=== PATIENT | female | born 1940 | race Caucasian/White ===

== ENCOUNTER 2019-03-23 15:35 | Inpatient (IN) | payer MEDICAID ==
[~2019-03-23] VITALS: Ht 149.9 cm; Wt 68.0 kg
[~2019-03-23 15:35] MED LIST: ASPI-1393 PO; BENA40TA9 PO; CARV12.545 PO; FERR-63 PO; FURO20TA4 PO; LEVO25TA7 PO; SIMV40TA5 PO
[2019-03-23] MEDS ORDERED: SODIUM CHLORIDE 0.9% 1,000 ML IV ONE ×4 (16:08→19:45)
[2019-03-23 16:28] LABS: BASOPHILS % 0.1 % (0.0-2.0); EOSINOPHILS % 0.8 % (0.0-5.0); LYMPHOCYTES % 10.9 % (20.0-50.0); MEAN CORPUSCULAR VOLUME 91.7 fL (81.0-99.0); MEAN PLATELET VOLUME 7.2 fl (7.4-10.4); MONOCYTES % 7.4 % (2.0-8.0); NEUTROPHILS % 80.8 % (40.0-76.0); PLATELET 64 x1000/uL (130-400); RED BLOOD CELL COUNT 1.16 mill/uL (4.2-5.4); RED CELL DISTRIBUTION WIDTH 18.2 % (11.6-14.6)
[2019-03-23 16:33] LABS: CHLORIDE 108 mEq/L (98-107); HEMATOCRIT. 10.6 % (36.0-48.0); HEMOGLOBIN. 3.6 g/dL (12.0-16.0)
[2019-03-23 16:49] LABS: INR 2.1; PARTIAL THROMBOPLASTIN TIME 41.6 sec (23.4-31.0); PROTHROMBIN TIME 20.4 sec (9.6-11.0)
[2019-03-23] MEDS ORDERED: PHYTONADIONE 10MG/ML AMP SUBCUT ONE (18:00)
[2019-03-24] VITALS (14 sets, daily range): BP systolic 102–150; BP diastolic 48–68
[2019-03-24] MEDS ORDERED: DEXTROSE 50% WATER 50ML SYRINGE IV PRN (04:30)
[2019-03-24] MEDS: BLOOD SUGAR DIAGNOSTIC STRIP TEST SCH ×4 (07:30→21:00)
[2019-03-24] MEDS: INSULIN LISPRO 100 UNITS/ML SUBCUT SCH ×4 (08:00→21:00)
[2019-03-24] MEDS: PANTOPRAZOLE SODIUM 40 MG/VIAL IV SCH ×2 (08:51→17:00)
[2019-03-24] MEDS: LEVOTHYROXINE SODIUM 25MCG TABLET PO SCH (08:51)
[2019-03-24] MEDS: MORPHINE SULFATE 2 MG/ML CPJ (NOT FOR IM USE) IV PRN ×2 (08:52→22:43)
[2019-03-24 11:06] LABS: BASOPHILS % 0.2 % (0.0-2.0); EOSINOPHILS % 0.4 % (0.0-5.0); LYMPHOCYTES % 12.2 % (20.0-50.0); MEAN CORPUSCULAR HEMOGLOBIN 29.4 pg (28.0-32.0); MEAN CORPUSCULAR VOLUME 86.5 fL (81.0-99.0); MEAN PLATELET VOLUME 8.3 fl (7.4-10.4); MONOCYTES % 6.1 % (2.0-8.0); NEUTROPHILS % 81.1 % (40.0-76.0); PLATELET 91 x1000/uL (130-400); RED BLOOD CELL COUNT 2.38 mill/uL (4.2-5.4); RED CELL DISTRIBUTION WIDTH 16.1 % (11.6-14.6)
[2019-03-24 11:11] LABS: HEMATOCRIT. 20.6 % (36.0-48.0); INR 1.4; PROTHROMBIN TIME 14.1 sec (9.6-11.0)
[2019-03-24 11:25] LABS: CHLORIDE 112 mEq/L (98-107)
[2019-03-24] MEDS ORDERED: SORBITOL 70% SOLN 30ML PO NR (15:00)
[2019-03-24] MEDS ORDERED: DIATR MEGLU/DIATRIZOATE SOLN 30ML PO NR (17:30)
[2019-03-24 17:41] LABS: TOTAL IRON BINDING CAPACITY 236 ug/dL (250-450)
[2019-03-24 18:40] LABS: HEMATOCRIT 26.3 % (36.0-48.0)
[2019-03-24 19:15] LABS: VITAMIN B12 SERUM 835 pg/mL (211-911)
[2019-03-24 22:22] LABS: CLARITY URINE CLOUDY (CLEAR); COLOR URINE YELLOW (YELLOW); KETONES URINE NEGATIVE (NEGATIVE); LEUKOCYTE ESTERASE URINE 2+ (NEGATIVE); NITRITE URINE NEGATIVE (NEGATIVE); OCCULT BLOOD URINE 1+ (NEGATIVE); PROTEIN URINE TRACE (NEGATIVE); UROBILINOGEN URINE 0.2 E.U./dL (0.2-1.0)
[2019-03-24] MEDS ORDERED: IOHEXOL-300 100 ML BOTTLE ONE (22:38)
[2019-03-25] VITALS (12 sets, daily range): BP systolic 85–145; BP diastolic 45–68
[2019-03-25 02:28] LABS: HEMOGLOBIN 8.8 g/dL (12.0-16.0)
[2019-03-25] MEDS: MORPHINE SULFATE 2 MG/ML CPJ (NOT FOR IM USE) IV PRN ×3 (02:58→16:07)
[2019-03-25] MEDS: LEVOTHYROXINE SODIUM 25MCG TABLET PO SCH (06:43)
[2019-03-25 07:07] LABS: CHLORIDE 110 mEq/L (98-107)
[2019-03-25] MEDS: INSULIN LISPRO 100 UNITS/ML SUBCUT SCH ×4 (08:00→21:00)
[2019-03-25 08:08] LABS: INR 1.2; PROTHROMBIN TIME 12.7 sec (9.6-11.0)
[2019-03-25] MEDS: BLOOD SUGAR DIAGNOSTIC STRIP TEST SCH ×4 (08:13→21:00)
[2019-03-25] MEDS: PANTOPRAZOLE SODIUM 40 MG/VIAL IV SCH ×2 (08:26→17:25)
[2019-03-25 11:11] LABS: BASOPHILS % 0.1 % (0.0-2.0); EOSINOPHILS % 0.5 % (0.0-5.0); HEMATOCRIT. 24.2 % (36.0-48.0); HEMOGLOBIN. 8.3 g/dL (12.0-16.0); LYMPHOCYTES % 9.9 % (20.0-50.0); MEAN CORPUSCULAR HEMOGLOBIN 29.7 pg (28.0-32.0); MEAN CORPUSCULAR VOLUME 86.3 fL (81.0-99.0); MEAN PLATELET VOLUME 7.3 fl (7.4-10.4); MONOCYTES % 4.3 % (2.0-8.0); NEUTROPHILS % 85.2 % (40.0-76.0); PLATELET 58 x1000/uL (130-400); RED CELL DISTRIBUTION WIDTH 15.6 % (11.6-14.6)
[2019-03-25 12:12] LABS: HEMATOCRIT 22.3 % (36.0-48.0); HEMOGLOBIN 7.7 g/dL (12.0-16.0)
[2019-03-25] MEDS ORDERED: HEPARIN 1000 UNITS/ML 10ML ONE (15:25)
[2019-03-25] MEDS: LIDOCAINE 5% PATCH TOP SCH (17:26)
[2019-03-25 18:13] LABS: HEMATOCRIT 25.8 % (36.0-48.0); HEMOGLOBIN 8.3 g/dL (12.0-16.0)
[2019-03-26] VITALS (59 sets, daily range): BP systolic 76–130; BP diastolic 33–73
[2019-03-26 00:54] LABS: HEMATOCRIT 19.5 % (36.0-48.0); HEMOGLOBIN 6.5 g/dL (12.0-16.0)
[2019-03-26 06:25] LABS: INR 1.5; PARTIAL THROMBOPLASTIN TIME 47.4 sec (23.4-31.0); PROTHROMBIN TIME 14.8 sec (9.6-11.0)
[2019-03-26] MEDS: LEVOTHYROXINE SODIUM 25MCG TABLET PO SCH (06:40)
[2019-03-26] MEDS ORDERED: LIDOCAINE HCL 1% 20ML VIAL (Pyxis) INJ ONE (07:23)
[2019-03-26] MEDS: BLOOD SUGAR DIAGNOSTIC STRIP TEST SCH ×4 (07:30→20:37)
[2019-03-26 07:52] LABS: MEAN CORPUSCULAR HEMOGLOBIN 30.3 pg (28.0-32.0); MEAN CORPUSCULAR VOLUME 89.2 fL (81.0-99.0); MEAN PLATELET VOLUME 8.1 fl (7.4-10.4); RED BLOOD CELL COUNT 1.98 mill/uL (4.2-5.4); RED CELL DISTRIBUTION WIDTH 15.9 % (11.6-14.6)
[2019-03-26] MEDS: INSULIN LISPRO 100 UNITS/ML SUBCUT SCH ×4 (08:00→20:38)
[2019-03-26 08:09] LABS: HEMATOCRIT. 17.7 % (36.0-48.0)
[2019-03-26 08:10] LABS: PLATELET 31 x1000/uL (130-400)
[2019-03-26] MEDS: LIDOCAINE 5% PATCH TOP SCH (09:00)
[2019-03-26] MEDS: PANTOPRAZOLE SODIUM 40 MG/VIAL IV SCH ×2 (09:00→17:31)
[2019-03-26 12:42] LABS: NUCLEATED RED BLOOD CELLS 1 /100 WBC; PLATELET ESTIMATE MARKEDLY DECREASED
[2019-03-26] MEDS ORDERED: NOREPINEPHRINE 16 MG in DEXT 5% WATER 234 ML IV PRN ×2 (13:00→22:00)
[2019-03-26] MEDS ORDERED: FUROSEMIDE 20MG/2ML VIAL IVP SCH (13:00)
[2019-03-26] MEDS ORDERED: OCTREOTIDE 1,000 MCG in SODIUM CHLORIDE 0.9% 98 ML IV PRN (18:00)
[2019-03-26 19:32] LABS: HEMATOCRIT 26.6 % (36.0-48.0); HEMOGLOBIN 9.1 g/dL (12.0-16.0)
[2019-03-26] MEDS ORDERED: FUROSEMIDE 40MG/4ML VIAL IVP NR (20:45)
[2019-03-27] VITALS (57 sets, daily range): BP systolic 84–160; BP diastolic 34–112
[2019-03-27 01:06] LABS: HEMOGLOBIN 8.9 g/dL (12.0-16.0)
[2019-03-27] MEDS: MORPHINE SULFATE 2 MG/ML CPJ (NOT FOR IM USE) IV PRN ×2 (04:34→20:17)
[2019-03-27 06:57] LABS: INR 1.3; PARTIAL THROMBOPLASTIN TIME 40.9 sec (23.4-31.0); PROTHROMBIN TIME 13.6 sec (9.6-11.0)
[2019-03-27 07:24] LABS: HEMOGLOBIN. 9.4 g/dL (12.0-16.0); MEAN CORPUSCULAR HEMOGLOBIN 29.8 pg (28.0-32.0); MEAN CORPUSCULAR VOLUME 85.8 fL (81.0-99.0); MEAN PLATELET VOLUME 8.2 fl (7.4-10.4); RED BLOOD CELL COUNT 3.15 mill/uL (4.2-5.4); RED CELL DISTRIBUTION WIDTH 15.4 % (11.6-14.6)
[2019-03-27] MEDS: BLOOD SUGAR DIAGNOSTIC STRIP TEST SCH ×4 (07:50→21:00)
[2019-03-27] MEDS ORDERED: POTASSIUM CHLORIDE 20MEQ/PACKET PO NR (08:00)
[2019-03-27 08:04] LABS: PLATELET 39 x1000/uL (130-400)
[2019-03-27] MEDS: INSULIN LISPRO 100 UNITS/ML SUBCUT SCH ×4 (08:20→21:00)
[2019-03-27] MEDS ORDERED: CEFTRIAXONE 1 G PREMIX 50 ML IV SCH (09:00)
[2019-03-27 09:06] LABS: FOLATE HEMATOCRIT 25.8 % (34.0-46.6)
[2019-03-27] MEDS ORDERED: CEFEPIME 1,000 MG in DEXTROSE 5% WATER 50 ML IV SCH (09:30)
[2019-03-27] MEDS ORDERED: POTASSIUM CHLORIDE INJ 40 MEQ in DEXT 5% WATER 250 ML IV NR (10:00)
[2019-03-27 10:02] LABS: PLATELET ESTIMATE MARKEDLY DECREASED
[2019-03-27] MEDS: LEVOTHYROXINE SODIUM 25MCG TABLET PO SCH (10:30)
[2019-03-27] MEDS: PANTOPRAZOLE SODIUM 40 MG/VIAL IV SCH ×2 (10:30→18:49)
[2019-03-27] MEDS: LIDOCAINE 5% PATCH TOP SCH (10:31)
[2019-03-27] MEDS ORDERED: MAGNESIUM 2 G PREMIX 50 ML IV NR (12:00)
[2019-03-27] MEDS: METRONIDAZOLE 500 MG PREMIX 100 ML IV SCH ×2 (14:34→20:18)
[2019-03-27 16:04] LABS: HEMATOCRIT 24.2 % (36.0-48.0); HEMOGLOBIN 8.3 g/dL (12.0-16.0)
[2019-03-27] MEDS ORDERED: MIDAZOLAM HCL 5 MG/5 ML VIAL ONE (17:07)
[2019-03-27] MEDS ORDERED: FENTANYL CITRATE/PF 50MCG/ML 2ML VIAL ONE (17:08)
[2019-03-27 18:14] LABS: HEMATOCRIT 24.2 % (36.0-48.0); HEMOGLOBIN 8.3 g/dL (12.0-16.0)
[2019-03-27] MEDS ORDERED: MIDAZOLAM HCL 2 MG/2 ML VIAL IV PRN (18:22)
[2019-03-28] VITALS (20 sets, daily range): BP systolic 93–146; BP diastolic 50–85
[2019-03-28 00:27] LABS: HEMATOCRIT 23.1 % (36.0-48.0); HEMOGLOBIN 7.8 g/dL (12.0-16.0)
[2019-03-28] MEDS: MORPHINE SULFATE 2 MG/ML CPJ (NOT FOR IM USE) IV PRN ×2 (01:57→23:20)
[2019-03-28] MEDS: METRONIDAZOLE 500 MG PREMIX 100 ML IV SCH ×3 (05:16→23:16)
[2019-03-28 05:41] LABS: BASOPHILS % 0.1 % (0.0-2.0); EOSINOPHILS % 0.6 % (0.0-5.0); HEMATOCRIT. 24.8 % (36.0-48.0); HEMOGLOBIN. 8.3 g/dL (12.0-16.0); LYMPHOCYTES % 10.4 % (20.0-50.0); MEAN CORPUSCULAR HEMOGLOBIN 29.5 pg (28.0-32.0); MEAN CORPUSCULAR VOLUME 88.1 fL (81.0-99.0); MEAN PLATELET VOLUME 8.3 fl (7.4-10.4); MONOCYTES % 3.8 % (2.0-8.0); NEUTROPHILS % 85.1 % (40.0-76.0); RED BLOOD CELL COUNT 2.82 mill/uL (4.2-5.4); RED CELL DISTRIBUTION WIDTH 15.8 % (11.6-14.6)
[2019-03-28 05:42] LABS: CHLORIDE 116 mEq/L (98-107)
[2019-03-28 06:01] LABS: PLATELET 26 x1000/uL (130-400)
[2019-03-28 06:06] LABS: PHOSPHORUS 2.9 mg/dL (2.5-4.9)
[2019-03-28] MEDS: INSULIN LISPRO 100 UNITS/ML SUBCUT SCH ×4 (07:41→21:00)
[2019-03-28] MEDS: BLOOD SUGAR DIAGNOSTIC STRIP TEST SCH ×4 (07:41→21:00)
[2019-03-28] MEDS: LEVOTHYROXINE SODIUM 25MCG TABLET PO SCH (07:50)
[2019-03-28] MEDS: CEFEPIME 1,000 MG in DEXTROSE 5% WATER 50 ML IV SCH (08:00)
[2019-03-28] MEDS: LIDOCAINE 5% PATCH TOP SCH (08:00)
[2019-03-28] MEDS: PANTOPRAZOLE SODIUM 40 MG/VIAL IV SCH ×2 (08:00→16:51)
[2019-03-28] MEDS ORDERED: FUROSEMIDE 20MG/2ML VIAL IVP NR (10:30)
[2019-03-28 13:07] LABS: HEMATOCRIT 26.1 % (36.0-48.0)
[2019-03-28 21:43] LABS: HEMATOCRIT 25.8 % (36.0-48.0); HEMOGLOBIN 8.7 g/dL (12.0-16.0)
[2019-03-29] MEDS: METRONIDAZOLE 500 MG PREMIX 100 ML IV SCH ×3 (04:12→21:57)
[2019-03-29 07:28] LABS: BASOPHILS % 0.1 % (0.0-2.0); EOSINOPHILS % 0.9 % (0.0-5.0); HEMATOCRIT. 26.1 % (36.0-48.0); HEMOGLOBIN. 8.7 g/dL (12.0-16.0); LYMPHOCYTES % 11.3 % (20.0-50.0); MEAN CORPUSCULAR HEMOGLOBIN 29.7 pg (28.0-32.0); MEAN CORPUSCULAR VOLUME 88.8 fL (81.0-99.0); MEAN PLATELET VOLUME 8.1 fl (7.4-10.4); MONOCYTES % 5.2 % (2.0-8.0); NEUTROPHILS % 82.5 % (40.0-76.0); RED BLOOD CELL COUNT 2.94 mill/uL (4.2-5.4); RED CELL DISTRIBUTION WIDTH 16.3 % (11.6-14.6)
[2019-03-29 07:39] LABS: PLATELET 30 x1000/uL (130-400)
[2019-03-29 07:47] LABS: CHLORIDE 115 mEq/L (98-107)
[2019-03-29 08:00] VITALS: BP_SYST 128; BP_SYST 148; BP_DIAS 51; BP_DIAS 56
[2019-03-29 08:26] LABS: HEPATITIS B SURFACE ANTIGEN NEGATIVE
[2019-03-29 08:56] LABS: HEPATITIS A AB IGM NEGATIVE (NEGATIVE)
[2019-03-29] MEDS: CEFEPIME 1,000 MG in DEXTROSE 5% WATER 50 ML IV SCH (10:21)
[2019-03-29] MEDS: LEVOTHYROXINE SODIUM 25MCG TABLET PO SCH (10:22)
[2019-03-29] MEDS: PANTOPRAZOLE SODIUM 40 MG/VIAL IV SCH ×2 (10:22→17:28)
[2019-03-29] MEDS: LIDOCAINE 5% PATCH TOP SCH (10:23)
[2019-03-29] MEDS ORDERED: VANCOMYCIN 1250MG in DEXTROSE 5% WATER 250ML IV SCH (11:00)
[2019-03-29 12:00] VITALS: BP 141/51
[2019-03-29] MEDS: BLOOD SUGAR DIAGNOSTIC STRIP TEST SCH (12:10)
[2019-03-29] MEDS: LEVOFLOXACIN 250MG TABLET PO SCH (12:13)
[2019-03-29] MEDS: ETHAMBUTOL HCL 400MG TABLET PO SCH (12:13)
[2019-03-29 14:12] LABS: FOLATE RBC 709 ng/mL (>498)
[2019-03-29 16:00] VITALS: BP 150/69
[2019-03-29 20:00] VITALS: BP 138/47
[2019-03-30] VITALS: BP 125/51
[2019-03-30] MEDS ORDERED: MORPHINE SULFATE 2 MG/ML CPJ (NOT FOR IM USE) IV PRN (00:15)
[2019-03-30] MEDS: HYDROCODONE/ACETAMINOPHEN 5/325MG TABLET PO PRN ×3 (01:08→20:06)
[2019-03-30 04:00] VITALS: BP 129/56
[2019-03-30] MEDS: VANCOMYCIN 750 MG PREMIX 150 ML IV SCH ×2 (05:26→23:43)
[2019-03-30] MEDS: METRONIDAZOLE 500 MG PREMIX 100 ML IV SCH ×3 (05:26→20:07)
[2019-03-30 06:41] LABS: EOSINOPHILS % 0.8 % (0.0-5.0); HEMATOCRIT. 23.7 % (36.0-48.0); HEMOGLOBIN. 7.9 g/dL (12.0-16.0); LYMPHOCYTES % 19.4 % (20.0-50.0); MEAN CORPUSCULAR HEMOGLOBIN 29.5 pg (28.0-32.0); MEAN CORPUSCULAR VOLUME 88.6 fL (81.0-99.0); MEAN PLATELET VOLUME 8.3 fl (7.4-10.4); MONOCYTES % 8.2 % (2.0-8.0); NEUTROPHILS % 71.6 % (40.0-76.0); RED BLOOD CELL COUNT 2.67 mill/uL (4.2-5.4)
[2019-03-30] MEDS: LEVOTHYROXINE SODIUM 25MCG TABLET PO SCH (06:43)
[2019-03-30 06:56] LABS: PLATELET 23 x1000/uL (130-400)
[2019-03-30 08:00] VITALS: BP 117/53
[2019-03-30] MEDS: ETHAMBUTOL HCL 400MG TABLET PO SCH (08:53)
[2019-03-30] MEDS: PANTOPRAZOLE SODIUM 40 MG/VIAL IV SCH ×2 (08:53→16:47)
[2019-03-30] MEDS: LIDOCAINE 5% PATCH TOP SCH (08:54)
[2019-03-30] MEDS: CEFEPIME 1,000 MG in DEXTROSE 5% WATER 50 ML IV SCH (08:54)
[2019-03-30 12:00] VITALS: BP 118/54
[2019-03-30 16:00] VITALS: BP 109/50
[2019-03-30 20:00] VITALS: BP 118/59
[2019-03-30] MEDS: METOPROLOL TARTRATE 25MG TABLET PO SCH (20:07)
[2019-03-30 21:23] LABS: CHLORIDE 111 mEq/L (98-107)
[2019-03-31] VITALS: BP 137/59
[2019-03-31 04:00] VITALS: BP 130/67
[2019-03-31] MEDS: METRONIDAZOLE 500 MG PREMIX 100 ML IV SCH ×2 (04:59→13:08)
[2019-03-31 06:03] LABS: CHLORIDE 112 mEq/L (98-107)
[2019-03-31 06:03] LABS: BASOPHILS % 0.2 % (0.0-2.0); EOSINOPHILS % 1.5 % (0.0-5.0); HEMATOCRIT. 25.3 % (36.0-48.0); HEMOGLOBIN. 8.5 g/dL (12.0-16.0); LYMPHOCYTES % 21.2 % (20.0-50.0); MEAN CORPUSCULAR HEMOGLOBIN 29.9 pg (28.0-32.0); MEAN CORPUSCULAR VOLUME 89.2 fL (81.0-99.0); MEAN PLATELET VOLUME 8.1 fl (7.4-10.4); NEUTROPHILS % 68.1 % (40.0-76.0); RED BLOOD CELL COUNT 2.84 mill/uL (4.2-5.4); RED CELL DISTRIBUTION WIDTH 16.1 % (11.6-14.6)
[2019-03-31 06:09] LABS: PLATELET 25 x1000/uL (130-400)
[2019-03-31] MEDS: LEVOTHYROXINE SODIUM 25MCG TABLET PO SCH (06:39)
[2019-03-31 08:00] VITALS: BP 124/58
[2019-03-31] MEDS: METOPROLOL TARTRATE 25MG TABLET PO SCH ×2 (09:00→20:27)
[2019-03-31] MEDS: CEFEPIME 1,000 MG in DEXTROSE 5% WATER 50 ML IV SCH (10:30)
[2019-03-31] MEDS: PANTOPRAZOLE SODIUM 40 MG/VIAL IV SCH ×2 (10:30→16:14)
[2019-03-31] MEDS: ETHAMBUTOL HCL 400MG TABLET PO SCH (10:31)
[2019-03-31] MEDS: LIDOCAINE 5% PATCH TOP SCH (10:35)
[2019-03-31] MEDS: LEVOFLOXACIN 250MG TABLET PO SCH (10:50)
[2019-03-31 12:00] VITALS: BP 120/91
[2019-03-31 16:00] VITALS: BP 121/67
[2019-03-31] MEDS ORDERED: OMEP20TA2 MT (17:32)
[2019-03-31 20:00] VITALS: BP 150/49
[2019-04-01] VITALS: BP 115/52
[2019-04-01 04:00] VITALS: BP 135/69
[2019-04-01] MEDS: LEVOTHYROXINE SODIUM 25MCG TABLET PO SCH (06:14)
[2019-04-01 07:27] LABS: BASOPHILS % 0.3 % (0.0-2.0); EOSINOPHILS % 1.1 % (0.0-5.0); HEMATOCRIT. 25.8 % (36.0-48.0); HEMOGLOBIN. 8.7 g/dL (12.0-16.0); LYMPHOCYTES % 15.2 % (20.0-50.0); MEAN CORPUSCULAR HEMOGLOBIN 29.8 pg (28.0-32.0); MEAN CORPUSCULAR VOLUME 88.7 fL (81.0-99.0); MEAN PLATELET VOLUME 8.7 fl (7.4-10.4); MONOCYTES % 6.2 % (2.0-8.0); NEUTROPHILS % 77.2 % (40.0-76.0); RED BLOOD CELL COUNT 2.91 mill/uL (4.2-5.4)
[2019-04-01 07:55] LABS: CHLORIDE 111 mEq/L (98-107)
[2019-04-01 08:00] VITALS: BP 136/54
[2019-04-01] MEDS: LIDOCAINE 5% PATCH TOP SCH (09:00)
[2019-04-01] MEDS: METOPROLOL TARTRATE 25MG TABLET PO SCH ×2 (09:00→20:56)
[2019-04-01] MEDS: ETHAMBUTOL HCL 400MG TABLET PO SCH (09:39)
[2019-04-01] MEDS: PANTOPRAZOLE SODIUM 40 MG/VIAL IV SCH ×2 (09:39→16:57)
[2019-04-01 10:12] LABS: PLATELET 33 x1000/uL (130-400)
[2019-04-01 11:57] VITALS: BP 120/54
[2019-04-01 16:00] VITALS: BP 120/63
[2019-04-01] MEDS ORDERED: FLUCONAZOLE 100MG TABLET PO NR (16:00)
[2019-04-01 20:00] VITALS: BP 125/58
[2019-04-01] MEDS: HYDROCODONE/ACETAMINOPHEN 5/325MG TABLET PO PRN (22:07)
[2019-04-02] VITALS: BP 103/45
[2019-04-02 04:00] VITALS: BP 140/74
[2019-04-02] MEDS: LEVOTHYROXINE SODIUM 25MCG TABLET PO SCH (06:27)
[2019-04-02 08:13] VITALS: BP 140/59
[2019-04-02] MEDS: PANTOPRAZOLE SODIUM 40 MG/VIAL IV SCH ×2 (08:54→17:00)
[2019-04-02] MEDS: METOPROLOL TARTRATE 25MG TABLET PO SCH ×2 (08:55→23:14)
[2019-04-02] MEDS: HYDROCODONE/ACETAMINOPHEN 5/325MG TABLET PO PRN (08:55)
[2019-04-02] MEDS: ETHAMBUTOL HCL 400MG TABLET PO SCH (08:56)
[2019-04-02] MEDS: FLUCONAZOLE 100MG TABLET PO SCH (08:56)
[2019-04-02] MEDS: LIDOCAINE 5% PATCH TOP SCH (08:56)
[2019-04-02] MEDS: LEVOFLOXACIN 250MG TABLET PO SCH (11:49)
[2019-04-02 12:02] VITALS: BP 114/54
[2019-04-02 16:00] VITALS: BP 113/56
[2019-04-02 20:00] VITALS: BP 129/76
[2019-04-03] VITALS: BP 125/75
[2019-04-03 04:00] VITALS: BP 118/58
[2019-04-03] MEDS: LEVOTHYROXINE SODIUM 25MCG TABLET PO SCH (06:43)
[2019-04-03 07:03] LABS: BASOPHILS % 0.5 % (0.0-2.0); EOSINOPHILS % 0.8 % (0.0-5.0); HEMATOCRIT. 26.1 % (36.0-48.0); HEMOGLOBIN. 8.6 g/dL (12.0-16.0); LYMPHOCYTES % 17.2 % (20.0-50.0); MEAN CORPUSCULAR HEMOGLOBIN 29.6 pg (28.0-32.0); MEAN CORPUSCULAR VOLUME 90.1 fL (81.0-99.0); MEAN PLATELET VOLUME 8.4 fl (7.4-10.4); MONOCYTES % 7.3 % (2.0-8.0); NEUTROPHILS % 74.2 % (40.0-76.0); RED BLOOD CELL COUNT 2.89 mill/uL (4.2-5.4); RED CELL DISTRIBUTION WIDTH 17.2 % (11.6-14.6)
[2019-04-03 07:11] LABS: CHLORIDE 109 mEq/L (98-107)
[2019-04-03 07:39] LABS: PLATELET 50 x1000/uL (130-400)
[2019-04-03 08:00] VITALS: BP 126/53
[2019-04-03] MEDS ORDERED: SODIUM POLYSTYRENE SULFONATE 15 G/60 ML BOT PO SCH (09:00)
[2019-04-03] MEDS: PANTOPRAZOLE SODIUM 40 MG/VIAL IV SCH ×2 (09:00→15:56)
[2019-04-03] MEDS: METOPROLOL TARTRATE 25MG TABLET PO SCH ×2 (09:47→20:33)
[2019-04-03] MEDS: FLUCONAZOLE 100MG TABLET PO SCH (09:47)
[2019-04-03] MEDS: HYDROCODONE/ACETAMINOPHEN 5/325MG TABLET PO PRN (09:47)
[2019-04-03] MEDS: LIDOCAINE 5% PATCH TOP SCH (09:48)
[2019-04-03] MEDS: ETHAMBUTOL HCL 400MG TABLET PO SCH (09:48)
[2019-04-03 16:00] VITALS: BP 126/53
[2019-04-03 20:00] VITALS: BP 120/58
[2019-04-04] VITALS: BP 147/59
[2019-04-04 04:00] VITALS: BP 108/57
[2019-04-04] MEDS: LEVOTHYROXINE SODIUM 25MCG TABLET PO SCH (06:39)
[2019-04-04] MEDS ORDERED: HYDROCODONE/ACETAMINOPHEN 10/325MG TABLET PO PRN (07:00)
[2019-04-04] MEDS ORDERED: ACETAMINOPHEN 325MG TABLET PO PRN (07:00)
[2019-04-04] MEDS ORDERED: HYDROCODONE/ACETAMINOPHEN 5/325MG TABLET PO PRN (07:00)
[2019-04-04 08:00] VITALS: BP 146/61
[2019-04-04] MEDS: PANTOPRAZOLE SODIUM 40 MG/VIAL IV SCH ×2 (09:00→17:00)
[2019-04-04] MEDS: LEVOFLOXACIN 250MG TABLET PO SCH (09:14)
[2019-04-04] MEDS: FLUCONAZOLE 100MG TABLET PO SCH (09:14)
[2019-04-04] MEDS: ETHAMBUTOL HCL 400MG TABLET PO SCH (09:14)
[2019-04-04] MEDS: METOPROLOL TARTRATE 25MG TABLET PO SCH ×2 (09:15→21:33)
[2019-04-04] MEDS: LIDOCAINE 5% PATCH TOP SCH (09:16)
[2019-04-04 11:44] LABS: BASOPHILS % 0.5 % (0.0-2.0); EOSINOPHILS % 0.7 % (0.0-5.0); HEMATOCRIT. 28.6 % (36.0-48.0); HEMOGLOBIN. 9.3 g/dL (12.0-16.0); LYMPHOCYTES % 17.7 % (20.0-50.0); MEAN CORPUSCULAR HEMOGLOBIN 29.2 pg (28.0-32.0); MEAN CORPUSCULAR VOLUME 89.7 fL (81.0-99.0); MEAN PLATELET VOLUME 7.9 fl (7.4-10.4); MONOCYTES % 9.6 % (2.0-8.0); NEUTROPHILS % 71.5 % (40.0-76.0); PLATELET 76 x1000/uL (130-400); RED BLOOD CELL COUNT 3.19 mill/uL (4.2-5.4); RED CELL DISTRIBUTION WIDTH 17.1 % (11.6-14.6)
[2019-04-04 11:54] LABS: CHLORIDE 106 mEq/L (98-107)
[2019-04-04 12:00] VITALS: BP 125/58
[2019-04-04 17:32] VITALS: BP 132/65
[2019-04-04] MEDS: SODIUM CHLORIDE 10% FOR INH 15ML VIAL NEB INH NR ×2 (19:30→20:45)
[2019-04-05] VITALS: BP 138/56
[2019-04-05 04:00] VITALS: BP 127/63
[2019-04-05] MEDS: LEVOTHYROXINE SODIUM 25MCG TABLET PO SCH (06:45)
[2019-04-05 07:04] LABS: BASOPHILS % 0.8 % (0.0-2.0); EOSINOPHILS % 1.2 % (0.0-5.0); HEMATOCRIT. 26.3 % (36.0-48.0); HEMOGLOBIN. 8.8 g/dL (12.0-16.0); LYMPHOCYTES % 26.1 % (20.0-50.0); MEAN CORPUSCULAR HEMOGLOBIN 29.7 pg (28.0-32.0); MEAN PLATELET VOLUME 7.9 fl (7.4-10.4); MONOCYTES % 11.3 % (2.0-8.0); NEUTROPHILS % 60.6 % (40.0-76.0); PLATELET 73 x1000/uL (130-400); RED BLOOD CELL COUNT 2.95 mill/uL (4.2-5.4)
[2019-04-05 07:06] LABS: INR 1.2
[2019-04-05 07:12] LABS: CHLORIDE 106 mEq/L (98-107)
[2019-04-05 08:00] VITALS: BP 121/50
[2019-04-05] MEDS: PANTOPRAZOLE SODIUM 40 MG/VIAL IV SCH (08:47)
[2019-04-05] MEDS: METOPROLOL TARTRATE 25MG TABLET PO SCH (08:47)
[2019-04-05] MEDS: FLUCONAZOLE 100MG TABLET PO SCH (08:47)
[2019-04-05] MEDS: ETHAMBUTOL HCL 400MG TABLET PO SCH (08:47)
[2019-04-05] MEDS: LIDOCAINE 5% PATCH TOP SCH (08:54)
[2019-04-05 10:14] LABS: BG BASE EXCESS 2.2 mmol/L (-2.0-2.0); BG DEOXYHEMOGLOBIN 8.1 % (0.0-5.0); BG FRACTION INSPIRED OXYGEN 21; BG HCO3 ACT 25.6 mmol/L (22.0-26.0); BG METHEMOGLOBIN 0.3 % (0.0-1.5); BG OXYGEN SATURATION 91.8 % (92.0-98.5); BG OXYHEMOGLOBIN 90.6 % (94.0-97.0); BG PCO2 35.1 mmHg (35.0-45.0); BG PH 7.481 (7.350-7.450); BG PO2 57.5 mmHg (75.0-100.0); BG SAMPLE SITE RIGHT RADIAL; BG TOTAL HEMOGLOBIN 9.7 g/dL (12.0-18.0); BG VENT MODE ROOM AIR
[2019-04-05 12:00] VITALS: BP 133/64
[2019-04-05 16:00] VITALS: BP 130/55
[2019-04-05 17:31] VITALS: BP 130/55
[2019-04-05] MEDS ORDERED: RIFAMPIN 300MG CAPSULE PO SCH (21:00)
== END 2019-04-05 19:10 | disposition home or self-care (01) | DRG 720 ==
LOC: ER 15:35 → 5EST 18:34 → ENRESERV 03-24 02:03 → CVICU 03-26 12:05 → 8WST 03-28 15:07
PROVIDERS: ADMIT Internal Medicine; ATTEND Internal Medicine
PROC: 30233K1 Transfusion of Nonautologous Frozen Plasma into Peripheral Vein, Percutaneous Approach (ICD-10-PCS; 2019-03-23)
PROC: 30233N1 Transfusion of Nonautologous Red Blood Cells into Peripheral Vein, Percutaneous Approach (ICD-10-PCS; 2019-03-23)
PROC: 02HV33Z Insertion of Infusion Device into Superior Vena Cava, Percutaneous Approach (ICD-10-PCS; 2019-03-26)
PROC: B548ZZA Ultrasonography of Superior Vena Cava, Guidance (ICD-10-PCS; 2019-03-26)
PROC: 30233R1 Transfusion of Nonautologous Platelets into Peripheral Vein, Percutaneous Approach (ICD-10-PCS; 2019-03-26)
PROC: 0DB58ZX Excision of Esophagus, Via Natural or Artificial Opening Endoscopic, Diagnostic (ICD-10-PCS; principal; 2019-03-27)
PROC: 0DB68ZX Excision of Stomach, Via Natural or Artificial Opening Endoscopic, Diagnostic (ICD-10-PCS; 2019-03-27)
DX: A41.9 Sepsis, unspecified organism (principal); J96.01 Acute respiratory failure with hypoxia; E43 Unspecified severe protein-calorie malnutrition; I50.33 Acute on chronic diastolic (congestive) heart failure; D61.818 Other pancytopenia; I82.B11 Acute embolism and thrombosis of right subclavian vein; N17.9 Acute kidney failure, unspecified; J18.9 Pneumonia, unspecified organism; K27.4 Chronic or unspecified peptic ulcer, site unspecified, with hemorrhage; K29.71 Gastritis, unspecified, with bleeding; B37.81 Candidal esophagitis; D68.9 Coagulation defect, unspecified; D69.59 Other secondary thrombocytopenia; E83.51 Hypocalcemia; E87.8 Other disorders of electrolyte and fluid balance, not elsewhere classified; I24.8 Other forms of acute ischemic heart disease; G90.8 Other disorders of autonomic nervous system; K64.4 Residual hemorrhoidal skin tags; K74.60 Unspecified cirrhosis of liver; K76.6 Portal hypertension; I85.00 Esophageal varices without bleeding; E87.6 Hypokalemia; I27.20 Pulmonary hypertension, unspecified; I25.10 Atherosclerotic heart disease of native coronary artery without angina pectoris; I08.0 Rheumatic disorders of both mitral and aortic valves; R18.8 Other ascites; E03.9 Hypothyroidism, unspecified; E78.00 Pure hypercholesterolemia, unspecified; E78.5 Hyperlipidemia, unspecified; K29.50 Unspecified chronic gastritis without bleeding; R32 Unspecified urinary incontinence; Z53.9 Procedure and treatment not carried out, unspecified reason; R16.0 Hepatomegaly, not elsewhere classified; D62 Acute posthemorrhagic anemia; M25.511 Pain in right shoulder; D25.9 Leiomyoma of uterus, unspecified; Z86.11 Personal history of tuberculosis; Z86.15 Personal history of latent tuberculosis infection; Z22.7 Latent tuberculosis; Z68.30 Body mass index [BMI] 30.0-30.9, adult
CPT/HCPCS: 36415; 36600; 71045; 71250; 74177; 76770; 76937; 78278; 80048; 80076; 80202; 81003; 82105; 82270; 82375; 82550; 82607; 82728; 82747; 82805; 82962; 83036; 83540; 83550; 83735; 83880; 84100; 84132; 84134; 84145; 84443; 84484; 85014; 85018; 85044; 85732; 86705; 86709; 86803; 86850; 86900; 86920; 86927; 87340; 88305; 88312; 88313; 92610; 93005; 93306; 93970; 93971; 96360; 96361; 96372; 97162; 97530; 99291; A6261; A9560; C1725; C1769; C9113; J0692; J0696; J1644; J1815; J1940; J2250; J2270; J3010; J3370; J3430; J3475; J3480; J3490; J7030; J7040; J7060; J7131; P9016; P9017; P9034; Q9963; Q9967; A4315